=== PATIENT | female | born 1965 | race Two or more races ===

== ENCOUNTER 2018-12-15 11:55 | Outpatient (CLI) | payer OTHER | END 2018-12-15 11:57 | disposition home or self-care (01) | LOC: MAMO-SONO 11:55 | DX: N60.11 Diffuse cystic mastopathy of right breast (principal); Z12.31 Encounter for screening mammogram for malignant neoplasm of breast ==

== ENCOUNTER 2018-12-25 10:27 | Emergency (ER) | payer OTHER ==
[~2018-12-25] VITALS: Ht 170.2 cm; Wt 124.7 kg
[2018-12-25] MEDS ORDERED: SINGULAIR 10MG10 MG PO (10:47)
[2018-12-25] MEDS ORDERED: ZYRTEC10 MG PO (10:47)
[2018-12-25] MEDS ORDERED: KETO10TA2 PO (14:43)
[2018-12-25] MEDS ORDERED: NORFLEX100MG PO (14:43)
== END 2018-12-25 16:41 | disposition home or self-care (01) ==
LOC: ER 10:27
DX: M25.562 Pain in left knee (principal)

== ENCOUNTER 2020-10-31 13:53 | Outpatient (CLI) | payer OTHER ==
[~2020-10-31 13:53] MED LIST: KETO10TA2 PO; NORFLEX100MG PO; SINGULAIR 10MG10 MG PO; ZYRTEC10 MG PO
== END 2020-10-31 14:08 | disposition home or self-care (01) ==
LOC: RAD 13:53
PROVIDERS: ATTEND Internal Medicine
DX: R92.2 Inconclusive mammogram (principal); N64.89 Other specified disorders of breast; M65.30 Trigger finger, unspecified finger

== ENCOUNTER 2020-11-14 10:24 | Outpatient (CLI) | payer OTHER | END 2020-11-14 10:33 | disposition home or self-care (01) | LOC: NUCLEAR 10:24 | PROVIDERS: ATTEND Internal Medicine | DX: M81.0 Age-related osteoporosis without current pathological fracture (principal) ==

== ENCOUNTER 2022-05-29 10:30 | Emergency (ER) | payer OTHER ==
[~2022-05-29] VITALS: Ht 170.2 cm; Wt 132.9 kg
[2022-05-29] MEDS ORDERED: FLONASE16 GM NS (10:36)
[2022-05-29] MEDS ORDERED: ALBUTEROL2.5 MG/3 M IH (10:37)
== END 2022-05-29 16:33 | disposition home or self-care (01) ==
LOC: ER 10:30
DX: K29.70 Gastritis, unspecified, without bleeding (principal); Z88.0 Allergy status to penicillin

== ENCOUNTER 2023-08-02 10:29 | Outpatient (CLI) | payer OTHER ==
[~2023-08-02 10:29] MED LIST changes: +ALBUTEROL2.5 MG/3 M IH; +FLONASE16 GM NS
== END 2023-08-02 10:31 | disposition home or self-care (01) ==
LOC: MAMO-SONO 10:29 → NUCLEAR 08-03 11:30 → MAMO-SONO 08-03 11:30
PROVIDERS: ATTEND Internal Medicine
DX: Z12.31 Encounter for screening mammogram for malignant neoplasm of breast (principal); N63.0 Unspecified lump in unspecified breast; N64.9 Disorder of breast, unspecified

== ENCOUNTER 2023-08-02 12:34 | Outpatient (CLI) | payer OTHER | END 2023-08-02 12:35 | disposition home or self-care (01) | LOC: NUCLEAR 12:34 | PROVIDERS: ATTEND Internal Medicine | DX: M81.0 Age-related osteoporosis without current pathological fracture (principal) ==